=== PATIENT | male | born 1985 | race Caucasian/White ===

== ENCOUNTER 2017-04-13 16:44 | Emergency (ER) | payer SELFPAY ==
[~2017-04-13] VITALS: Ht 167.6 cm; Wt 81.6 kg
[2017-04-13] MEDS ORDERED: LIDOCAINE/EPI 2% 1:100,00 (XYLOCAINE) 20 ML VIAL ONE (16:55)
--- NOTE | 2017-04-13 17:08 | ED Upper Extremity ---
General Chief Complaint: Laceration Stated Complaint: L HAND/ARM LAC Source: patient, family (SPOUSE) Exam Limitations: no limitations History of Present Illness Time seen by provider: 16:57 Initial Comments Patient presents immediately after pushing his hand through a window pane while trying to open a stuck storm window. He has a horseshoe shaped laceration on his left palm of his hand. He says he has good feeling and can move it. He immediately applied a washcloth and pressure and elevation to the site. He has had a tetanus shot approximate 5 years ago. He has had a few drinks tonight typically every other day he will drink up to 6 beers. He does not smoke or use any other recreational drugs. He is accompanied by his . Allergies and Home Medications Allergies Coded Allergies: No Known Allergies (Verified Allergy, Unknown, 05/07/07) Constitutional: No chills, No diaphoresis Respiratory: No cough, No short of breath Cardiovascular: No edema, No palpitations Skin: see HPI, other (laceration) Psychiatric/Neurological: Denies Numbness, Denies Paresthesia, Denies Tingling , Denies Tremors, Denies Weakness Past Regfbyd-Qweirh-Whognl Hx Patient Social History Alcohol Use: Regular Use (3/day) Recreational Drug Use: No Smoking Status: Never a Smoker Recent Foreign Travel: No Contact w/Someone Who Travel: No Respiratory Hx Respiratory Disorders: No Cardiovascular Hx Cardiac Disorders: No Neurological Hx Neurological Disorders: No Reproductive System Hx Reproductive Disorders: No Genitourinary Hx Genitourinary Disorders: No Endocrine Hx Endocrine Disorders: No HEENT HX ENT Disorders: No Blood Transfusions Hx Blood Disorders: No Physical Exam Vital Signs Vital Sign - Last 12Hours 04/13/17 17:04 Temp 98.2 Pulse 72 Resp 16 B/P (MAP) 149/97 Pulse Ox 98 O2 Delivery Room Air Capillary Refill : General Appearance: WD/WN, no apparent distress Wrist: Yes pain, Yes swelling Hand: Left, swelling (pain) Neurologic/Tendon: normal sensation, normal motor functions, normal tendon functions, responds to pain, no evidence tendon injury Skin: other (5cm horseshoe laceration to the palmar portion of the hyperthenar eminence.) Laceration Repair : Wound Location: Upper Extremities (left hand) Wound Length (cm): 5 Wound's Depth, Shape: into muscle, linear (horseshoe shaped) Wound Explored: no foreign body removed (explored and copiously irrigated with saline and chlorhexidine) Irrigated w/ Saline (ccs): 200 Betadine Prep?: Yes Anesthesia: Lidocaine w/ Epi (2%) Volume Anesthetic (ccs): 12 Wound Debrided: minimal Suture: Ethlion Suture Size: 3-0 Number of Sutures: 10 Layer Closure?: 1 Number Deep Layer Sutures: 0 Sterile Dressing Applied?: Yes Progress Hand and wound was cleaned with chlorhexidine soap and saline and then cleaned with Betadine, scrubbed the wound was then explored with saline and tools after draping appropriately in a sterile fashion. The patient was numbed with 2% lidocaine with epinephrine approximately 12 cc. No glass is found or other foreign bodies. 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 The wound was then sutured with 10 interrupted sutures 2 of which were corner sutures with horizontal stitch. No deep sutures were needed for this repair. Progress/Results/Core Measures Results/Orders My Orders Orders - BREEZY WASHINGTON Lidocaine/Epi 2% 1:100,000 (Xylocaine/Ep (04/13/17 16:55) Lidocaine/Epi 2% 1:100,000 (Xylocaine/Ep (04/13/17 17:15) Dipht,Pertuss(Acell),Tet Adult (Boostrix (04/13/17 17:15) Vital Signs/I&O Vital Sign - Last 12Hours 04/13/17 17:04 Temp 98.2 Pulse 72 Resp 16 B/P (MAP) 149/97 Pulse Ox 98 O2 Delivery Room Air Progress Note : Time: 17:59 Progress Note Cleaned, stitched, hemostatic and tetanus shot applied. Antibiotic sent to pharmacy. Departure Impression Impression: Primary Impression: Laceration Disposition: 01 HOME, SELF-CARE Condition: Improved Departure-Patient Inst. Decision time for Depature: 17:59 Referrals: NO,LOCAL PHYSICIAN (PCP) Primary Care Physician Patient Instructions: Laceration Repair With Stitches (DC) Add. Discharge Instructions: Laceration was repaired with 10 stitches will need to come out in approximately 7 days. If you start having redness, swelling, increased tenderness or other drainage of purulent material you should return to the ER or go to your primary care physician. Next week 04/21/17 you should report your primary care physician or return to the ER to have the stitches removed and the wound reevaluated. If you're having other new or worsening or worrisome symptoms such as nausea, fever, vomiting, diarrhea, rash, red streaks up your arm then you should also return to the ER or your primary care physician. Obtain the antibiotic sent to the pharmacy and start taking them one capsule twice daily until completion. Taking them with food will make the antibiotics more tolerable. If you're having pain you can use elevation, gentle compression, ice , Tylenol and/or Motrin. You should avoid excessive drinking of alcohol more than one to 2 drinks a day as this may thin you blood and increase your risk of bleeding. If this is insufficient you can also use the hydrocodone tablets that have been prescribed you. Do not mix hydrocodone with alcohol as this may make you more drowsy. If you're having difficulty having a bowel movement or constipation you should use MiraLAX or some jsaw-thx-lxpxryp laxative until your regular again. All discharge instructions reviewed with patient and/or family. Voiced understanding. Scripts Hydrocodone/Acetaminophen (Hydrocodon -Acetaminophen 5-325) 1 Each Tablet 1 EACH PO Q6H Y for BREAKTHROUGH PAIN, #15 TAB 0 Refills Prov: BREEZY WASHINGTON 04/13/17 Sulfamethoxazole/Trimethoprim (Bactrim 400-80 mg Tablet) 1 Each Tablet 1 EACH PO BID for 10 Days, #20 TAB 0 Refills Prov: BREEZY WASHINGTON 04/13/17 BREEZY WASHINGTON April 13, 2017 17:08
[2017-04-13] MEDS ORDERED: TETANUS,DIPTH,PERTUSS P/F (BOOSTRIX) 0.5 ML VIAL IM ONE (17:15)
[2017-04-13] MEDS ORDERED: LIDOCAINE/EPI 2% 1:100,00 (XYLOCAINE) 20 ML VIAL INJ ONE (17:15)
[2017-04-13] MEDS ORDERED: HYDR-3812 PO (18:05)
[2017-04-13] MEDS ORDERED: SULF1TAB34 PO (18:05)
[2017-04-13] MEDS ORDERED: RX-TRIMETH/SULFA. 160-800 MG (BACTRIM DS) TAB PPK#2 PO STA (18:18)
[2017-04-13] MEDS ORDERED: RX-HYDROCODONE/APAP 5/325 MG #4 TAB PK PO PRN (18:30)
[2017-04-13 18:40] VITALS: BP 140/92
== END 2017-04-13 18:40 | disposition home or self-care (01) ==
LOC: EDUNIT# 16:44 → ER 16:46
DX: S61.412A Laceration without foreign body of left hand, initial encounter (principal); Z23 Encounter for immunization; W25.XXXA Contact with sharp glass, initial encounter; Y92.009 Unspecified place in unspecified non-institutional (private) residence as the place of occurrence of the external cause; Y99.8 Other external cause status
CPT/HCPCS: 12002; 90715

== ENCOUNTER → 2017-07-16 | Outpatient (CLI) | payer SELFPAY ==
[~2017-07-16] MED LIST: HYDR-3812 PO; SULF1TAB34 PO
--- NOTE | 2017-07-16 13:57 | Diagnostic Imaging Report ---
INDICATION: Pain status post injury. COMPARISON: None FINDINGS: Frontal and lateral views of the lumbar spine were obtained. Alignment and vertebral heights are maintained. There is no fracture or destructive process. Mild multilevel degenerative disease is noted in the lumbar spine. Limited views of the abdomen demonstrate nonobstructive bowel gas pattern. IMPRESSION: 1. No acute fracture or dislocation of the lumbar spine. 2. Mild multilevel degenerative changes. Dictated by: Dictated on workstation # [id number]
== END ==
LOC: RAD 13:35
PROVIDERS: ATTEND Nurse Practitioner Family
DX: M54.42 Lumbago with sciatica, left side (principal); M54.41 Lumbago with sciatica, right side
CPT/HCPCS: 72100

== ENCOUNTER 2018-08-09 10:25 | Emergency (ER) | payer SELFPAY ==
[~2018-08-09] VITALS: Ht 167.6 cm; Wt 81.6 kg
[~2018-08-09 10:25] MED LIST changes: +ACHD5005 PO; -HYDR-3812 PO
[2018-08-09] MEDS ORDERED: LIDOCAINE 2% VISCOUS 15 ML UDC PO ONE (10:45)
[2018-08-09] MEDS ORDERED: ASPIRIN 81 MG CHEW (CHILDREN'S ASA) PO ONE (10:45)
[2018-08-09] MEDS ORDERED: ANTACID SUSP 30 ML UDC (MYLANTA) PO ONE (10:45)
--- NOTE | 2018-08-09 10:48 | ED Chest Pain ---
General Stated Complaint: CHEST PAIN Source: patient, family Exam Limitations: no limitations History of Present Illness Date Seen by Provider: Aug 09, 2018 Time Seen by Provider: 10:43 Initial Comments This 33-year-old white male presents complaining of chest pain that began paroxysmally this morning while he was preparing breakfast for his family. Patient's chest pain was sharp in nature anterior in location severe in quality and nonradiating. The patient had no associated diaphoresis, shortness of breath, nausea or vomiting. Patient has had a history of severe reflux requiring surgery. Patient is a previous IV drug abuser. Patient denies recent IV drug use, significant alcohol, or the use of new prescribed or ndux-ath-sbifvup medications. The patient is a smoker. Allergies and Home Medications Allergies Coded Allergies: No Known Allergies (Verified Allergy, Unknown, 05/07/07) Home Medications Hydrocodone Bit/Acetaminophen 1 Each Tablet, 1 EACH PO Q6H PRN for BREAKTHROUGH PAIN Prescribed by: BREEZY WASHINGTON on 04/13/171804 Sulfamethoxazole/Trimethoprim 1 Each Tablet, 1 EACH PO BID Prescribed by: BREEZY WASHINGTON on 04/13/17 180 Patient Home Medication List Home Medication List Reviewed: Yes Review of Systems Review of Systems Constitutional: No chills, No fever EENTM: No Blurred Vision, No Ear Pain Respiratory: Denies Cough, Denies Shortness of Air Cardiovascular: See HPI, Chest Pain; Denies Irregular Heart Rate, Denies Palpitations, Denies Syncope Gastrointestinal: Denies Abdominal Pain, Denies Diarrhea, Denies Nausea, Denies Vomiting Genitourinary: No Symptoms Reported Musculoskeletal: no symptoms reported Skin: no symptoms reported; No rash Psychiatric/Neurological: Anxiety Endocrine: No Symptoms Reported Hematologic/Lymphatic: No Symptoms Reported Past Nkkwtih-Wuynnr-Ywufva Hx Past Med/Social Hx: Reviewed Nursing Past Med/Soc Hx Patient Social History Alcohol Beverage of Choice: Beer Recent Foreign Travel: No Contact w/Someone Who Travel: No Recent Hopitalizations: Yes Immunizations Up To Date Tetanus Booster (TDap): More than 5yrs Past Medical History Surgeries: Yes (LAP.ETTA,CIRC.) Appendectomy Respiratory: No Cardiac: No Neurological: No Reproductive Disorders: No Gastrointestinal: No Musculoskeletal: No Endocrine: No HEENT: No Cancer: No Psychosocial: No Integumentary: No Blood Disorders: No Physical Exam Vital Signs Vital Signs - First Documented 08/09/18 10:25 Temp 98.0 Pulse 67 Resp 18 B/P (MAP) 134/88 (103) Pulse Ox 100 O2 Delivery Room Air Capillary Refill : Height, Weight, BMI Height: 5'6.00" Weight: 180lbs. oz. 81.275511df; BMI Method:Estimated General Appearance: WD/WN, Anxious HEENT: Normal ENT Inspection Neck: Normal Inspection Respiratory: Lungs Clear Cardiovascular: Regular Rate, Rhythm, No Edema, No Gallop, No JVD, No Murmur, Normal Peripheral Pulses Gastrointestinal: Normal Bowel Sounds, Non Tender, Soft Extremity: Normal Inspection Neurologic/Psychiatric: Alert, Oriented x3, No Motor/Sensory Deficits Skin: Normal Color, Warm/Dry; No Rash Procedures/Interventions Suture Size: 3-0 Progress/Results/Core Measures Results/Orders Lab Results Laboratory Tests Test 08/09/18 10:41 Range/Units White Blood Count 7.1 4.3-11.0 10^3/uL Red Blood Count 5.11 4.35-5.85 10^6/uL Hemoglobin 15.3 13.3-17.7 G/DL Hematocrit 44 40-54 % Mean Corpuscular Volume 86 80-99 FL Mean Corpuscular Hemoglobin 30 25-34 PG Mean Corpuscular Hemoglobin Concent 35 32-36 G/DL Red Cell Distribution Width 13.3 10.0-14.5 % Platelet Count 316 130-400 10^3/uL Mean Platelet Volume 9.4 7.4-10.4 FL Neutrophils (%) (Auto) 61 42-75 % Lymphocytes (%) (Auto) 27 12-44 % Monocytes (%) (Auto) 9 0-12 % Eosinophils (%) (Auto) 2 0-10 % Basophils (%) (Auto) 1 0-10 % Neutrophils # (Auto) 4.3 1.8-7.8 X 10^3 Lymphocytes # (Auto) 1.9 1.0-4.0 X 10^3 Monocytes # (Auto) 0.7 0.0-1.0 X 10^3 Eosinophils # (Auto) 0.2 0.0-0.3 10^3/uL Basophils # (Auto) 0.0 0.0-0.1 10^3/uL Prothrombin Time 12.7 12.2-14.7 SEC INR Comment 1.0 0.8-1.4 Activated Partial Thromboplast Time 34 24-35 SEC Sodium Level 140 135-145 MMOL/L Potassium Level 3.6 3.6-5.0 MMOL/L Chloride Level 102 98-107 MMOL/L Carbon Dioxide Level 26 21-32 MMOL/L Anion Gap 12 5-14 MMOL/L Blood Urea Nitrogen 15 7-18 MG/DL Creatinine 1.12 0.60-1.30 MG/DL Estimat Glomerular Filtration Rate > 60 BUN/Creatinine Ratio 13 Glucose Level 103 70-105 MG/DL Calcium Level 10.3 H 8.5-10.1 MG/DL Corrected Calcium 8.5-10.1 MG/DL Magnesium Level 2.6 H 1.8-2.4 MG/DL Total Bilirubin 0.5 0.1-1.0 MG/DL Aspartate Amino Transf (AST/SGOT) 18 5-34 U/L Alanine Aminotransferase (ALT/SGPT) 15 0-55 U/L Alkaline Phosphatase 66 40-136 U/L Myoglobin 49.8 10.0-92.0 NG/ML Troponin I < 0.30 <0.30 NG/ML Total Protein 7.9 6.4-8.2 GM/DL Albumin 5.0 H 3.2-4.5 GM/DL My Orders Orders - CAIN, MATTHEW Chong MD Cbc With Automated Diff (08/09/18 10:41) Magnesium (08/09/18 10:41) Chest 1 View, Ap/Pa Only (08/09/18 10:41) Cardiac Profile 1 (08/09/18 10:41) Comprehensive Metabolic Panel (08/09/18 10:41) Myoglobin Serum (08/09/18 10:41) Protime With Inr (08/09/18 10:41) Partial Thromboplastin Time (08/09/18 10:41) O2 (08/09/18 10:41) Monitor-Rhythm Ecg Trace Only (08/09/18 10:41) Lipid Panel (08/10/18 06:00) Aspirin Chewable Tablet (Baby Aspirin Ch (08/09/18 10:45) Saline Lock/Iv-Start (08/09/18 10:41) Antacid Suspension (Mylanta Suspension (08/09/18 10:45) Lidocaine 2% Viscous 15 Ml (Xylocaine Vi (08/09/18 10:45) Lorazepam Injection (Ativan Injection) (08/09/18 11:15) Medications Given in ED Current Medications Medications Dose Ordered Sig/Wayne Route Start Time Stop Time Status Last Admin Dose Admin Al Hydrox/Mg Hydrox/Simethicone 30 ml ONCE ONCE PO 08/09/18 10:45 08/09/18 10:46 DC 08/09/18 10:56 30 ML Aspirin 324 mg ONCE ONCE PO 08/09/18 10:45 08/09/18 10:46 DC 08/09/18 10:56 324 MG Lidocaine HCl 5 ml ONCE ONCE PO 08/09/18 10:45 08/09/18 10:46 DC 08/09/18 10:56 5 ML Lorazepam 1 mg ONCE ONCE IVP 08/09/18 11:15 08/09/18 11:16 DC 08/09/18 11:33 1 MG Vital Signs/I&O 08/09/18 10:25 Temp 98.0 Pulse 67 Resp 18 B/P (MAP) 134/88 (103) Pulse Ox 100 O2 Delivery Room Air Progress Progress Note : Time: 10:47 Progress Note Patient's EKG in the emergency department demonstrated an apparent junctional rhythm. No acute current of injury was noted. However on placing the patient on a bus monitor he was clearly in a sinus rhythm. In the patient had an evaluation initiated. A GI cocktail was ordered for the patient. 11:59 a.m. The GI cocktail significantly improve the patient's discomfort. The patient's troponin was normal. The patient's residual discomfort was relieved with a milligram of Ativan IV. IM. The results with the patient and his . I reassured the patient and asked that he follow-up closely with his caregiver on Friday. I invited him to return to the emergency department if any further problems or questions. Departure Impression Primary Impression: Chest pain Qualified Codes: R07.9 - Chest pain, unspecified Disposition: HOME, SELF-CARE Condition: Improved Departure-Patient Inst. Decision time for Depature: 12:00 Referrals: [facility],LOCAL PHYSICIAN (PCP) Primary Care Physician Patient Instructions: Chest Pain (DC) Add. Discharge Instructions: Follow up closely with [facility] for further evaluation. Rest at home today. Return if any further problems or questions. MATTHEW BARLOW MD Aug 09, 2018 10:48
[2018-08-09 10:52] LABS: BASOPHILS % (AUTO) 1 % (0-10); EOSINOPHILS # (AUTO) 0.2 10^3/uL (0.0-0.3); EOSINOPHILS % (AUTO) 2 % (0-10); HEMATOCRIT 44 % (40-54); HEMOGLOBIN 15.3 G/DL (13.3-17.7); LYMPHOCYTES # (AUTO) 1.9 X 10^3 (1.0-4.0); LYMPHOCYTES % (AUTO) 27 % (12-44); MEAN CORPUSCULAR HEMOGLOBIN 30 PG (25-34); MEAN CORPUSCULAR HGB CONC 35 G/DL (32-36); MEAN CORPUSCULAR VOLUME 86 FL (80-99); MEAN PLATELET VOLUME 9.4 FL (7.4-10.4); MONOCYTES # (AUTO) 0.7 X 10^3 (0.0-1.0); MONOCYTES % (AUTO) 9 % (0-12); NEUTROPHILS # (AUTO) 4.3 X 10^3 (1.8-7.8); NEUTROPHILS % (AUTO) 61 % (42-75); PLATELET COUNT 316 10^3/uL (130-400); RED BLOOD COUNT 5.11 10^6/uL (4.35-5.85); RED CELL DISTRIBUTION WIDTH 13.3 % (10.0-14.5); WHITE BLOOD COUNT 7.1 10^3/uL (4.3-11.0)
[2018-08-09 11:00] VITALS: BP 137/93
[2018-08-09 11:03] LABS: PROTHROMBIN TIME PATIENT 12.7 SEC (12.2-14.7)
--- NOTE | 2018-08-09 11:08 | Diagnostic Imaging Report ---
INDICATION: Chest pain Upright chest shows normal heart size and vascularity. The lungs are clear. There is no effusion or pneumothorax. There is no bony abnormality. IMPRESSION: Normal chest. There is no change from 05/07/2007. Dictated by: Dictated on workstation # [id number]
[2018-08-09 11:12] LABS: ALANINE AMINOTRANSFERASE 15 U/L (0-55); ALKALINE PHOSPHATASE 66 U/L (40-136); BILIRUBIN,TOTAL 0.5 MG/DL (0.1-1.0); BUN/CREATININE RATIO 13; CALCIUM 10.3 MG/DL (8.5-10.1); CARBON DIOXIDE 26 MMOL/L (21-32); CHLORIDE 102 MMOL/L (98-107); CREATININE SERUM 1.12 MG/DL (0.60-1.30); GFR ESTIMATED > 60; GLUCOSE 103 MG/DL (70-105); MAGNESIUM 2.6 MG/DL (1.8-2.4); POTASSIUM 3.6 MMOL/L (3.6-5.0); SODIUM 140 MMOL/L (135-145); TOTAL PROTEIN 7.9 GM/DL (6.4-8.2)
[2018-08-09] MEDS ORDERED: LORazepam INJ 2 MG/ML (ATIVAN) VIAL IVP ONE (11:15)
[2018-08-09 11:19] LABS: MYOGLOBIN SERUM 49.8 NG/ML (10.0-92.0)
[2018-08-09 12:00] VITALS: BP 124/92
[2018-08-09 12:59] VITALS: BP 121/76
== END 2018-08-09 13:06 | disposition home or self-care (01) ==
LOC: EDUNIT# 10:25 → ER 10:26
DX: R07.9 Chest pain, unspecified (principal); Z90.89 Acquired absence of other organs
CPT/HCPCS: 36415; 71045; 80053; 83735; 83874; 84484; 85025; 85610; 85730; 93005; 93041; 96374

== ENCOUNTER 2022-08-14 17:25 | Emergency (ER) | payer SELFPAY ==
[~2022-08-14] VITALS: Ht 165 cm; Wt 74.2 kg
--- NOTE | 2022-08-14 18:53 | ED Integumentary General ---
General Chief Complaint: Bite-Animal/Human/Insect Stated Complaint: SWELLING OF RIGHT HAND Nursing Triage Note: PT COMPLAINS OF A SPIDER BITE TO RIGHT HAND ON FRIDAY. HAS BEEN TAKING PENICILLIN HE HAD AT HOME BUT IT IS GETTING WORSE. Source: patient Exam Limitations: no limitations History of Present Illness Date Seen by Provider: Aug 14, 2022 Time Seen by Provider: 18:20 Initial Comments Patient to the ER by private conveyance chief complaint last couple days he had a sore and that was draining some purulence on his right hand. He is right-hand dominant. He says he saw a brown spider bite him on Friday, 3 days ago. He does not have any significant pain swelling or fever until today. He has had subjective feelings of fever but no objective fever. He has not taken anything for pain. No significant medical history, immunocompromise, diabetes etc. Allergies and Home Medications Allergies Coded Allergies: No Known Allergies (Verified Allergy, Unknown, 05/07/07) Patient Home Medication List Home Medication List Reviewed: Yes Discontinued Medications Hydrocodone Bit/Acetaminophen (Lortab 5 Mg Tablet) 1 Each Tablet, 1 EACH PO Q6H PRN for BREAKTHROUGH PAIN Discontinued Reason: No Longer Taking Prescribed by: BREEZY WASHINGTON on 04/13/171804 Last Action: Discontinued Sulfamethoxazole/Trimethoprim (Bactrim 400-80 mg Tablet) 1 Each Tablet, 1 EACH PO BID Discontinued Reason: No Longer Taking Prescribed by: BREEZY WASHINGTON on 04/13/171804 Last Action: Discontinued Review of Systems Review of Systems Constitutional: No chills, No fever EENTM: No ear discharge, No ear pain Respiratory: No cough, No short of breath Cardiovascular: No chest pain, No palpitations Gastrointestinal: No abdominal pain, No nausea Genitourinary: No discharge, No dysuria Musculoskeletal: No back pain, No joint pain Skin: No pruritus, No rash All Other Systems Reviewed Negative Unless Noted: Yes Past Fqglqhl-Sjbzbt-Xayamy Hx Patient Social History Tobacco Use?: No Substance use?: Yes Substance type: Marijuana Alcohol Use?: Yes Alcohol Frequency: Rarely Immunizations Up To Date Tetanus Booster (TDap): More than 5yrs Past Medical History Surgeries: Yes (LAP.ETTA,CIRC.) Appendectomy Respiratory: No Cardiac: No Neurological: No Reproductive Disorders: No Gastrointestinal: No Musculoskeletal: No Endocrine: No HEENT: No Cancer: No Psychosocial: No Integumentary: No Blood Disorders: No Physical Exam Vital Signs Vital Signs - First Documented 08/14/22 17:30 Temp 37.0 Pulse 69 Resp 16 B/P (MAP) 133/78 (96) Pulse Ox 100 O2 Delivery Room Air Capillary Refill : Less Than 3 Seconds General Appearance: WD/WN, no apparent distress HEENT: PERRL/EOMI, pharynx normal Neck: non-tender, full range of motion, normal inspection Cardiovascular: normal peripheral pulses, regular rate, rhythm Respiratory: no respiratory distress, no accessory muscle use Extremities: normal range of motion, non-tender, normal capillary refill Neurologic/Psychiatric: alert, normal mood/affect, oriented x 3 Skin: other (Swollen erythematous right hand with a nondraining wound between the second and third knuckle dorsally.) Procedures/Interventions I&D : Site: Dorsum of the right hand Blade Size: 11 I & D Procedure: betadine prep (etoh) Progress Cleaned the site with alcohol and injected with 3 cc of 1% lidocaine. We then used 11 blade scalpel to extend the wound 3 mm each direction and used a blunt tipped cotton tip applicator to break up loculations. We expressed about 5 or 10 cc of purulent material. We then put a clean dry sterile gauze dressing over it. Patient tolerated procedure well. Suture Size: 3-0 Progress/Results/Core Measures Results/Orders My Orders Orders - BREEZY WASHINGTON Ceftriaxone (Rocephin) (08/14/22 19:00) Ketorolac Injection (Toradol Injection) (08/14/22 19:00) Lidocaine 1% Inj 20 Ml (Xylocaine 1% Inj (08/14/22 19:00) Lidocaine 1% Inj 10 Ml (Xylocaine 1% Inj (08/14/22 18:56) Medications Given in ED Current Medications Medications Dose Ordered Sig/Wayne Route Start Time Stop Time Status Last Admin Dose Admin Ceftriaxone Sodium 1,000 mg ONCE ONCE IM 08/14/22 19:00 08/14/22 19:01 DC 08/14/22 19:04 1,000 MG Ketorolac Tromethamine 60 mg ONCE ONCE IM 08/14/22 19:00 08/14/22 19:01 DC 08/14/22 19:03 60 MG Lidocaine HCl 10 ml STK-MED ONCE .ROUTE 08/14/22 18:56 08/14/22 18:58 DC 08/14/22 19:04 2.1 ML Vital Signs/I&O 08/14/22 17:30 Temp 37.0 Pulse 69 Resp 16 B/P (MAP) 133/78 (96) Pulse Ox 100 O2 Delivery Room Air Blood Pressure Mean: 96 Progress Progress Note : Time: 18:52 Progress Note Toradol, Rocephin and laine Departure Impression Primary Impression: Abscess Disposition: HOME, SELF-CARE Condition: Stable Departure-Patient Inst. Decision time for Depature: 19:11 Referrals: NO,LOCAL PHYSICIAN (PCP/Family) Primary Care Physician Patient Instructions: Boil (DC) Add. Discharge Instructions: Tylenol 1000 mg every 8 hours needed for pain Profen 800 mg or ER as needed for pain. Warm compresses needed for pain. Change the dressing daily or more frequently if it becomes soiled. Express as much fluid from the wound as possible. Bactrim 1 tab twice a day with food for 7 to 10 days. All discharge instructions reviewed with patient and/or family. Voiced understanding. Scripts Sulfamethoxazole/Trimethoprim (Bactrim Ds Tablet) 1 Each Tablet 1 EACH PO BID for 10 Days, #20 TAB 0 Refills Prov: BREEZY WASHINGTON 08/14/22 Work/School Note: Work Release Form Date Seen in the Emergency Department: Aug 14, 2022 Return to Work: Aug 15, 2022 Restrictions: Need Release from Doctor Other Restrictions Listed Below: No use of the right hand until 09/15/2022. BREEZY WASHINGTON Aug 14, 2022 18:53
[2022-08-14] MEDS ORDERED: LIDOCAINE 1% INJ 10 ML VIAL ONE (18:56)
[2022-08-14] MEDS ORDERED: cefTRIAXone 1,000 MG VIAL IM ONE (19:00)
[2022-08-14] MEDS ORDERED: LIDOCAINE 1% INJ 20 ML VIAL INJ ONE (19:00)
[2022-08-14] MEDS: KETOROLAC 60 MG/2 ML VIAL IM ONE ×2 (19:03→19:04)
[2022-08-14] MEDS ORDERED: SULF1TAB38 PO (19:14)
[2022-08-14 19:27] VITALS: BP 133/78
== END 2022-08-14 19:27 | disposition home or self-care (01) ==
LOC: EDUNIT# 17:25 → ER 17:26
DX: L02.511 Cutaneous abscess of right hand (principal); Z28.310 Unvaccinated for COVID-19
CPT/HCPCS: 99284